=== PATIENT | male | born 1940 | race Caucasian/White ===

== ENCOUNTER 2023-01-12 20:22 | Emergency (ER) | payer MEDICARE ==
[2023-01-12] MEDS ORDERED: Sodium Chloride 0.9% 10 ML Syringe FLUSH PRN (20:23)
[2023-01-12 20:37] LABS: BASOPHILS ABSOLUTE AUTO 0.03 K/uL (0.00-0.10); BASOPHILS PERCENT AUTO 0.4 % (0.1-1.3); EOSINOPHILS ABSOLUTE AUTO 0.08 K/uL (0.00-0.40); EOSINOPHILS PERCENT AUTO 1.1 % (0.0-5.4); HEMATOCRIT 48.9 % (38.4-49.7); HEMOGLOBIN 16.4 g/dL (12.9-16.9); IMMATURE GRAN PERCENT AUTO 0.3 % (0.0-0.7); LYMPHOCYTES ABSOLUTE AUTO 2.03 K/uL (0.8-3.3); LYMPHOCYTES PERCENT AUTO 27.3 % (11.4-47.7); MEAN CORPUSCULAR HEMOGLOBIN 33.6 pg (31.6-35.5); MEAN CORPUSCULAR HGB CONC 33.5 g/dL (31.6-35.5); MEAN CORPUSCULAR VOLUME 100.2 fL (81.4-99.0); MONOCYTES ABSOLUTE AUTO 0.67 K/uL (0.20-0.90); NEUTROPHILS PERCENT AUTO 61.9 % (40.0-78.1); PLATELET COUNT,PLT 174 K/uL (130-375); RED BLOOD CELL COUNT 4.88 M/uL (4.14-5.76); WHITE BLOOD CELL COUNT,WBC 7.4 K/uL (3.2-11.0)
[2023-01-12 20:41] LABS: IMMATURE GRAN ABSOLUTE AUTO 0.02 K/uL (0.00-0.23)
[2023-01-12 20:57] LABS: INR 1.6; PROTHROMBIN TIME 15.4 sec (9.2-10.6); PTT,PARTIAL THROMBOPLSTIN TIME 27.8 sec (21.8-27.3)
[2023-01-12 21:00] LABS: BLOOD UREA NITROGEN,BUN 27 mg/dL (7-18); CALCIUM 9.1 mg/dL (8.5-10.1); CARBON DIOXIDE,CO2 27 mmol/L (21-32); CHLORIDE,CL 100 mmol/L (100-108); CREATININE 1.1 mg/dL (0.8-1.3); ESTIMATED GFR 67 mL/min (>60); GLUCOSE RANDOM 139 mg/dL (74-106); POTASSIUM,K 4.3 mmol/L (3.6-5.2); SODIUM,NA 136 mmol/L (140-148); TROPONIN I HIGH SENSITIVITY 22.3 pg/mL (<=60.3)
[2023-01-12 21:02] LABS: ANION GAP 13.3 mmol/L (5.0-14.0)
[2023-01-12] MEDS ORDERED: Alteplase 81 MG in Infusion 1 VIAL IV STA (21:07)
[2023-01-12] MEDS ORDERED: Lidocaine 2% Jelly 10 ML Urojet ONE (21:27)
[2023-01-12] MEDS ORDERED: Lidocaine 2% Jelly 10 ML Urojet MUCMEM ONE (21:29)
[2023-01-12] MEDS ORDERED: Sodium Chloride 0.9% 10 ML Syringe FLUSH ONE (21:30)
[2023-01-12] MEDS ORDERED: Sodium Chloride 0.9% 75 ML IV ONE (21:30)
[2023-01-12] MEDS ORDERED: Iopamidol 755 Mg/ML 100 ML Bottle IV ONE (21:30)
== END 2023-01-12 22:42 ==
LOC: JP.ED 20:22
DX: I63.9 Cerebral infarction, unspecified (principal); I48.91 Unspecified atrial fibrillation
CPT/HCPCS: 36415; 37195; 51702; 70450; 70496; 70498; 80048; 84484; 85025; 85610; 85730; 93005; 93010; 99285; J2997; J3490; Q9967

== ENCOUNTER 2025-04-21 19:45 | Emergency (ER) | payer MEDICARE, OTHER | END 2025-04-21 21:04 | disposition home or self-care (01) | LOC: JP.ED 19:45 | DX: Z76.0 Encounter for issue of repeat prescription (principal); I48.91 Unspecified atrial fibrillation; E78.00 Pure hypercholesterolemia, unspecified; E11.9 Type 2 diabetes mellitus without complications; Z79.899 Other long term (current) drug therapy; Z79.01 Long term (current) use of anticoagulants; Z79.84 Long term (current) use of oral hypoglycemic drugs | CPT/HCPCS: 99281; 99283 ==